=== PATIENT | male | born 1990 | race Two or more races ===

== ENCOUNTER 2017-11-25 18:45 | Emergency (ER) | payer MEDICAID, OTHER ==
[~2017-11-25] VITALS: Ht 157.5 cm; Wt 65.8 kg
[2017-11-25 18:54] VITALS: BP 125/65
== END 2017-11-25 20:24 | disposition left against medical advice (07) ==
LOC: ER 18:47
DX: R51 Headache (principal); Z53.21 Procedure and treatment not carried out due to patient leaving prior to being seen by health care provider; V43.92XA Unspecified car occupant injured in collision with other type car in traffic accident, initial encounter; Y93.89 Activity, other specified; Y92.89 Other specified places as the place of occurrence of the external cause; Y99.8 Other external cause status
CPT/HCPCS: 70450